=== PATIENT | female | born 1950 | race Caucasian/White ===

== ENCOUNTER → 2016-09-14 | Day surgery (SDC) | payer OTHER ==
[2016-06-09 09:07] VITALS: BMI 37.0
[2016-09-01 13:50] VITALS: Ht 149.9 cm; Wt 81.8 kg
--- NOTE | 2016-09-13 14:15 | HISTORY & PHYSICAL EXAMINATION ---
DATE OF ADMISSION: 09/14/2016 HISTORY OF PRESENT ILLNESS: A 65-year-old female presents for preop evaluation. The patient had previous surgery on the right fourth toe by another doctor and notes that once the pin removed following that surgery, the toes started to drift and is now crawled under the right third digit, which is making it very uncomfortable for her to walk. Pain is in the right fourth toe. The pain is graded as a 9 on a 10 point scale, gradually worsening over time. I had previously corrected her other foot and she is requesting that I re-correct her right fourth toe due to problems that had developed previously. She is currently followed by another senior controller in [facility] for routine sort of care. She has had surgery by myself on the contralateral foot, and has had surgery on the right fourth toe by Dr. Veliz in the past and overall notes problems that developed postoperatively. She notes associated signs and symptoms consisting of calluses and pain. Past treatments include ABIs, accommodative padding, nonsteroidals, palliative debridement. Due to the nature and severity of the discomfort, she is requesting surgical intervention. PAST SURGICAL HISTORY: Foot surgery in 2003 and 1995, urinary surgery, hysterectomy, shoulder, carpal tunnel surgery on the right. PAST MEDICAL HISTORY: Anxiety disorder, depression and uterine cancer, asthma. MEDICATIONS: Advair, fish oil, multivitamin, Singulair, Dyazide, calcium, Cymbalta, baby aspirin, Ventolin, Percocet, erythromycin. ALLERGIES: DURICEF, AVELOX. FAMILY HISTORY: Arthritis, bleeding disorders, cancer, cardiovascular, diabetes, gout, hypertension, stroke, high cholesterol, and thyroid disease. SOCIAL HISTORY: The patient denies smoking, alcohol use, illicit drug use, and STDs. REVIEW OF SYSTEMS: Unremarkable except chief complaint. PHYSICAL EXAMINATION: VITAL SIGNS: BP 120/72, temperature 98.6, height 4 feet 11 inches, weight 180 pounds, body mass index 36. Vital signs within normal limits. CONSTITUTIONAL: The patient appears well-developed and nourished with good attention to body grooming and habitus. HEAD AND FACE: Head is normocephalic and atraumatic without any gross head, face, or neck masses. EYES: Conjunctival and pupil reaction to light and accommodation are normal. EARS, NOSE, MOUTH, AND THROAT: Unremarkable. NECK: Neck is supple. Trachea is midline. CARDIOVASCULAR: Normal S1, S2 without murmur, gallops, rubs, or clicks noted. RESPIRATORY: Chest is symmetric. No scars are visible. No port or pacemaker. LUNGS: Clear to auscultation bilaterally. GASTROINTESTINAL: Abdominal organs, bladder, and kidneys show no abnormalities, masses, tenderness, or rigidity. LOWER EXTREMITIES: DP palpable. PT palpable. DERMATOLOGIC: Cicatrix dorsal right second, third and fourth hyperkeratotic distal medial DIP joint, left 4th hyperkeratotic tissue distal right fourth. NEUROLOGICAL: Touch, pin, vibratory pain, proprioception sensations are normal. MUSCULOSKELETAL: Muscle tone is normal. Muscle strength is 5/5 all groups tested. PIPJ contracture in the right fourth and fifth with abduction, inversion deformity PIP joint, right fourth digit, PIP joint contracture noted of the right 2nd, 3rd, 4th and 5th. Ankle brachial index on 06/28/2016 notes the right fourth digit was unable to be obtained; however, see Dr. Cabrera notes and CT scan, he felt good healing with no complications or contraindications for the outlined surgery. Please see Dr. Cabrera's notes. IMPRESSION: 1. Hammertoes 2 through 5, right foot. 2. History of right fourth and fifth digits correction by Dr. Veliz. 3. Recurrent hammertoes secondary to early pin removed, status post surgery. 4. Difficulty walking. 5. Pain lower extremity, right foot. 6. 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 Veliz on the right fourth toe. PLAN: Reviewed conservative treatment options consisting of extra depth shoes, accommodative padding, palliative debridement, steroid injections, nonsteroidals and orthotics. We discussed at length the ABIs and digital pressures possibility of need for more proximal amputation if vascular compromise occurs as most likely this was the reason for the early pin removal by Dr. Veliz previously. The patient is aware of all risk. Due to little relief with conservative care she is requesting surgical intervention. Past surgery to be performed PIPJ arthroplasty, right 4th PIPJ arthroplasty, right 4th. This will be performed under local with IV sedation as an outpatient at the surgery center. Procedure, risks and complications were fully reviewed with the patient. Consent form, foot diagram and illustration reviewed in all their entirety. All the patient's questions were answered. Complications were discussed in detail with the patient including pain, infection, swelling that may or may not be excessive, pins and needles feeling, numbness, metatarsalgia, excessive bleeding, delay or nonhealing of bone, delay or nonhealing of skin, enlarged scar, failure of the procedure, recurrence or worsening of condition that may not require further surgery, adverse reaction to anesthesia, allergic reaction to suture or other implant material, loss of toe, foot, or leg, flail toe, stiff toe, short toe, elevated toe, transfer lesion or callus, peripheral neurovascular complications such as phlebitis, damage to nerves or vascular structures or chronic pain, chronic nerve pain or damage, and general medical complications. The patient will be required to be in a surgery shoe for a minimum of 3-6 weeks and not return to dress shoes for 6-12 weeks depending on the postop edema. She is aware this is an elective type procedure and I recommended a second opinion. Prescriptions for erythromycin and Percocet were dispensed. Verbal and written postop instructions were given. The patient will be required to be in a surgery shoe for a minimum of 3-6 weeks and not return to dress shoe for 6-12 weeks depending on postop edema. The patient will return to the office for postop check or sooner if medically necessary. Instructed to keep dressing clean, dry, and intact until seen at the office. GIOVANA
[~2016-09-14] VITALS: Ht 149.9 cm; Wt 81.8 kg
[~2016-09-14] MED LIST: ADVIN10/60 INH; ASPI81TA28 PO; ATROPINE SULFATE 0.1 MG/ML 5ML SYR IV PRN; BUPIVACAINE 0.5 % 5 MG/1 ML MPF 30ML VIAL ONE; CHOL20009 PO; CYM/30 PO; DEXAMETHASONE SOD INJ 4 MG/ML VIAL ONE; ERYTHROMYCIN 500 MG IV SCH; EpHEDrine SULFATE INJ 50 MG/ML AMP IV PRN; FENTANYL CITRATE INJ 50 MCG/1 ML 2 ML VIAL ONE; LACTATED RINGER'S 1000ML 1,000 ML IV SCH; LIDOCAINE HCL 2% 2 ML VIAL (20MG/ML) ONE; MAGN400T6 PO; MIDAZOLAM HCL 1 MG/ML 2ML VIAL ONE; MONT1TAB3 PO; MULT-506 PO; OMEG10007 PO; ONDANSETRON INJ 2 MG/ML 2 ML VIAL ONE; POTA550T4 PO; PROPOFOL IV EMULSION 10 MG/ML 20 ML VIAL IV ONE; PRVHFAIN INH; SODIUM CHLORIDE 0.9% 1000ML 1,000 ML IV SCH; TRIA37.5 PO; VANCOMYCIN INJ 1,000 MG in SODIUM CHLORIDE 0.9% 250ML 250 ML IV SCH
--- NOTE | 2016-09-14 06:43 | History & Physical Bridge - SC ---
H&P Re-Evaluation Bridge Note: I have examined the patient, reviewed the History & Physical and in the interval since the performance of the History & Physical I have noted the following changes of clinical significance: No changes noted
--- NOTE | 2016-09-14 06:44 | Discharge Instructions-SurgCtr ---
Discharge Instructions Visit Reason for Visit: Right 4TH Hammertoe Clawing Discharge Discharge Diagnosis / Problem: same as Dx Discharge Goals Goal(s): Decrease discomfort Activity Recommendations Activity Limitations: as noted below Medications: * Resume previous medications unless instructed by your surgeon. * Take your medications as prescribed. Call our office ([phone]) at any time, if you experience severe pain that does not subside shortly after taking your pain medication. Activity: * You may walk on your operated foot/ankle using the surgical shoe or cast/splint. Do not put any weight on your operated foot/ankle without wearing the surgical shoe or cast sandal.. Special Care: * Keep your bandage clean and dry. Do not remove your bandage unless otherwise instructed. A small amount of blood may appear on the bandage over the surgical site. Call our office ([phone]) if you bandage becomes blood-soaked or wet. * Elevate your operated foot/ankle on pillows, above the level of your heart, as often as possible during the first 2-3 days following surgery. Keep your knee flexed slightly with a pillow under your knee when you elevate your foot/ankle. * Apply a ice bag to your foot/ankle over the operative site for 20-30 minutes out of each hour while you are awake. Do not allow the ice bag to directly contact bare skin. * Avoid bumping or handling any pins visible in your toes. If any pin feels or appears loose, call the office ([phone]). * Take your oral temperature in the morning and at bedtime. Call our office ([phone]) if your temperature rises above 101 degrees Fahrenheit. Call your surgeon's office at ([phone]) for any problems or concerns such as excessive bleeding and/or pain unrelieved by your prescribed pain medications. If you have any questions, please do not hesitate to ask them. Avoid all tobacco products. If you need help to stop smoking, call [place]'s FREE QUITLINE at . This is a free call. Follow-up: Follow-up with Dr. Lewis Anesthesia . Post Anesthesia Instructions: If you have had General Anesthesia or IV Sedation: * Do not drive today. * Resume driving when surgeon permits. * Do not make important decisions or sign legal documents today. * Call surgeon for: 1. Temperature elevations greater than 101 degrees F. 2. Uncontrollable pain. 3. Excessive bleeding. 4. Persistent nausea and vomiting. 5. Medication intolerance (nausea, vomiting or rash). * For nausea and vomiting use only clear liquids such as: tea, soda, bouillon until nausea subsides, then gradually increase diet as tolerated. * If you have any concerns or questions, call your surgeon's office. If physician is unavailable and it is an emergency, call 911 or go to the nearest emergency room. . Diet Recommendations Home Diet: resume previous diet Pending Studies Studies pending at discharge: no Medical Emergencies . Who to Call and When: Medical Emergencies: If at any time you feel your situation is an emergency, please call 911 immediately. . Non-Emergent Contact Non-Emergency issues call your: Primary Care Provider . . "Provider Documentation" section prepared by Shirlene Gonzalez.
[2016-09-14 10:17] VITALS: TEMP 37.1
[2016-09-14 10:44] VITALS: BP 133/87; PULSE 73; O2SAT 96
--- NOTE | 2016-09-14 10:55 | Anesthesia Progress Nt - [facility] ---
Anesthesia Post Op Note Date & Time Sep 14, 2016 at 10:54 Vital Signs Pain Intensity: 0 Vital Signs Past 12 Hours Date Time Temp Pulse Resp B/P Pulse Ox O2 Delivery O2 Flow Rate FiO2 09/14/16 10:44 73 16 133/87 96 Room Air 09/14/16 10:17 37.1 77 16 152/76 97 Room Air 09/14/16 06:28 36.8 67 16 127/54 94 Room Air Notes Mental Status: alert / awake / arousable, participated in evaluation Pt Amnestic to Procedure: Yes Nausea / Vomiting: adequately controlled Pain: adequately controlled Airway Patency, RR, SpO2: stable & adequate BP & HR: stable & adequate Hydration State: stable & adequate Anesthetic Complications: no major complications apparent
--- NOTE | 2016-09-14 11:51 | DIAGNOSTIC IMAGING REPORT ---
FLUOROSCOPIC IMAGES OF THE RIGHT FOOT CLINICAL HISTORY: Hammertoe deformity COMPARISON STUDY: None FLUOROSCOPY TIME: 8.8 seconds. FINDINGS: 2 intraoperative fluoroscopic images demonstrate expected findings within the right fourth toe consistent with a PIP joint arthroplasty. Hardware is intact. IMPRESSION: Expected postsurgical findings within the right fourth toe. Electronically signed by: Parth Yee M.D. 09/14/2016 11:49 AM
--- NOTE | 2016-09-14 15:45 | DIAGNOSTIC IMAGING REPORT ---
Right foot 2 views CLINICAL HISTORY: post op COMPARISON STUDY: Right foot 09/14/2016. FINDINGS: There is a screw and pin at the PIP joint of the fourth toe. The head of the proximal phalanx of the fourth toe has been resected. Alignment appears anatomic. The hardware appears intact. Overlying bandage obscures fine bony detail. The bones are osteopenic. IMPRESSION: Expected postoperative changes at the PIP joint of the right fourth toe. Electronically signed by: Paolo Rascon M.D. 09/14/2016 3:43 PM
--- NOTE | 2016-09-14 16:02 | OPERATIVE REPORT ---
DATE OF OPERATION: 09/14/2016 SURGEON: Dr. Lewis. OFFLINE EDITOR: None. PREOPERATIVE DIAGNOSES: 1. Status post surgery right fourth digit with continued contracture. 2. Hammertoe with clawing, right fourth toe. POSTOPERATIVE DIAGNOSES: Same. PROCEDURES: 1. PIPJ arthroplasty with arthrodesis, right fourth. 2. DIPJ arthroplasty with arthrodesis, right fourth. 3. Capsulotomy, right fourth MTPJ. ANESTHESIA: IV sedation with local field block, 0.25% Marcaine plain, total of 30 mL. Pneumatic ankle tourniquet inflated to 250 mmHg for a total tourniquet time of 46 minutes. ESTIMATED BLOOD LOSS: Minimal. MATERIALS: 0.045 K-wire, 2-0 and 3-0 Vicryl, 4-0 nylon. COMPLICATIONS: None. CONDITION: The patient tolerated the procedure and anesthesia well without complications, transported to recovery room with vital signs stable and neurovascular status intact. PROCEDURE IN DETAIL: The patient was brought to the OR and placed on the OR table in supine position. Upon completion of sedation by the anesthesia department, a local field block was performed with the above-mentioned anesthetic. The extremity was scrubbed, prepped and draped in the usual aseptic fashion. Attention was directed to the right foot, it was elevated and exsanguinated. Prior to this, a well-padded tourniquet was applied to the right extremity. Attention was directed over previous incision site, curvilinear over the metatarsophalangeal joint, extending out onto the right fourth toe, ending in a T fashion at the level of the nail bed, proximal to the nail bed with care to preserve all neurovascular structures. Dissection was carried down to the level of the extensor tendon that was transected at the middle phalanx level, exposing both the DIP joint and PIP joint. There was pseudoarthrosis of the PIP joint with fibrous tissue that was broken apart. Using a sagittal saw, a portion of this was removed from both the middle phalanx and the proximal phalanx for fresh bone. The DIP joint was also excised using a rongeur and a linh to good bone. Wound was copiously lavaged with normal saline. A 0.045 K-wire was retrograded through the toe and at this time, an implant was placed in the proximal phalanx and the middle phalanx was drilled and implanted, crossing the metatarsophalangeal joint; 0.045 K-wire was crossing the DIP joint and cannulated through the implant, back across the level. It should be noted that prior to placement of the implant, a capsulotomy was performed at the right fourth MTPJ, releasing head using a McGlamry elevator as well as sharp dissection. The patient tolerated the procedure and anesthesia well. Prior to full closure, pneumatic ankle tourniquet was released with delayed uptake to the right fourth toe. The extensor tendon was repaired using 2-0 Vicryl, superficial subcutaneous tissues repaired using 3-0 Vicryl in a box stitch technique. Skin margins reapposed using 4-0 nylon. Pneumatic ankle tourniquet was released with normal hyperemic salgado to digits 1 through 5. Dry sterile compressive dressing consisting of Adaptic soaked in Betadine, 4 x 4, Aundrea and an Demar was applied. Fluoroscan was used throughout the procedure. Intraoperative films were taken prior to transport to recovery room. Due to delayed uptake, there was cap refill noted to the toe; however, this was still diminished and delayed. Recommended no ice and no elevation and will be seen in the office tomorrow for wound check. I attest to the content of the Intraoperative Record and any orders documented therein. Any exceptions are noted below. LAUREND
== END | disposition home or self-care (01) ==
LOC: X.SURG 06:13
PROVIDERS: ATTEND Podiatrist Foot & Ankle Surgery
DX: M20.41 Other hammer toe(s) (acquired), right foot (principal); M24.574 Contracture, right foot; J45.909 Unspecified asthma, uncomplicated; I10 Essential (primary) hypertension; I25.10 Atherosclerotic heart disease of native coronary artery without angina pectoris; F41.9 Anxiety disorder, unspecified; F32.9 Major depressive disorder, single episode, unspecified; Z68.36 Body mass index [BMI] 36.0-36.9, adult; E66.9 Obesity, unspecified; Z88.1 Allergy status to other antibiotic agents; Z85.42 Personal history of malignant neoplasm of other parts of uterus; Z98.890 Other specified postprocedural states